=== PATIENT | male | born 1945 | race Caucasian/White ===

== ENCOUNTER 2022-03-06 09:08 | Outpatient (CLI) | payer MEDICARE | END 2022-03-06 09:09 | disposition home or self-care (01) | LOC: BICRAD 09:08 | PROVIDERS: ATTEND Psychiatry & Neurology Neurology | DX: R26.81 Unsteadiness on feet (principal); M47.816 Spondylosis without myelopathy or radiculopathy, lumbar region | CPT/HCPCS: 72100 ==

== ENCOUNTER 2022-05-16 07:51 | Outpatient (CLI) | payer MEDICARE | END 2022-05-16 07:52 | disposition home or self-care (01) | LOC: TBSIIMAG 07:51 | PROVIDERS: ATTEND Psychiatry & Neurology Neurology | DX: M51.9 Unspecified thoracic, thoracolumbar and lumbosacral intervertebral disc disorder (principal); M47.816 Spondylosis without myelopathy or radiculopathy, lumbar region | CPT/HCPCS: 72148 ==

== ENCOUNTER 2022-12-07 00:36 | Observation (INO) | payer MEDICARE ==
[2022-12-07 01:34] LABS: #Basophils 0.1 thou/uL (0.0-0.2); #Eosinphils 0.3 thou/uL (0.0-0.7); #Lymphocytes 1.3 thou/uL (1.20-3.40); #Monocytes 0.5 thou/uL (0.11-0.59); #Neutrophils 5.1 thou/uL (1.40-6.50); %Basophils 0.8 % (0.0-1.0); %Eosinophils 3.5 % (0.0-10.0); %Lymphocytes 17.8 % (21.0-51.0); %Monocytes 7.3 % (0.0-10.0); %Neutrophils 70.6 % (42.0-75.0); Hemoglobin 13.3 g/dL (14.0-18.0); Mean Corpuscular HGB CONC 34.6 g/dL (32.0-36.0); Mean Corpuscular Hemoglobin 33.2 pg (27.0-31.0); Mean Corpuscular Volume 96.1 fl (78.0-98.0); Mean Platelet Volume 8.7 fL (7.4-10.4); Platelet Count 146 10x3/uL (130-400); RBC Distribution Width 12.6 % (11.5-14.5); Red Blood Cell (RBC) Count 4.01 mill/uL (4.70-6.10); White Blood Cell (WBC) Count 7.2 10x3/uL (4.8-10.8)
[2022-12-07 01:50] LABS: INR-International Normal Ratio 2.3
[2022-12-07 01:54] LABS: ALT (SGPT) 25 U/L (8-55); AST (SGOT) 25 U/L (5-34); Albumin 3.9 g/dL (3.4-4.8); Alkaline Phosphatase 116 U/L (40-110); Anion Gap 13 mmol/L (10-20); BUN (Urea Nitrogen) 27 mg/dL (8.4-25.7); Bilirubin, Total 0.9 mg/dL (0.2-1.2); Calc. Creatinine Clearance 0 mL/min (70-130); Calcium 9.4 mg/dL (7.8-10.44); Carbon Dioxide 24 mmol/L (23-31); Chloride 105 mmol/L (98-107); Estimated GFR 69; Globulin 2.9 g/dL (2.4-3.5); Glucose 151 mg/dL (83-110); Potassium 3.8 mmol/L (3.5-5.1); Protein, Total 6.8 g/dL (5.8-8.1); Sodium 138 mmol/L (136-145)
[2022-12-07 02:19] LABS: CKMB 3.2 ng/mL (0-6.6)
[2022-12-07] MEDS ORDERED: HumaLOG 300 UNITS/3 ML VIAL SC PRN ×2 (03:26)
[2022-12-07] MEDS ORDERED: Dextrose 5% in Water 1,000 ML IV PRN (03:26)
[2022-12-07] MEDS ORDERED: Dextrose 50% Abboject 50 ML SYRINGE SLOW IVP PRN (03:26)
[2022-12-07 04:19] VITALS: BP 142/77; TEMP 98.1; BMI 28.5
[2022-12-07 05:12] LABS: Hemoglobin A1c 6.2 % (4.0-6.0)
[2022-12-07 05:29] LABS: Troponin I 0.081 ng/mL (< 0.028)
[2022-12-07] MEDS ORDERED: Levothyroxine Sodium 25 MCG TAB PO SCH (06:00)
[2022-12-07] MEDS ORDERED: Levothyroxine Sodium 112 MCG TAB PO SCH (06:00)
[2022-12-07 06:12] LABS: SARS-CoV-2 NAA Rapid Test Not Detected (NotDetected)
[2022-12-07] MEDS ORDERED: metFORMIN XR 500 MG TAB PO SCH (08:00)
[2022-12-07 08:42] LABS: Troponin I 0.076 ng/mL (< 0.028)
[2022-12-07] MEDS ORDERED: Triamterene/Hydrochlorothiazide 37.5 mg/25 mg Tablet PO SCH (09:00)
[2022-12-07] MEDS ORDERED: Dutasteride 0.5 MG CAP PO SCH (09:00)
[2022-12-07] MEDS ORDERED: Losartan 25 MG TAB PO SCH (09:00)
[2022-12-07] MEDS ORDERED: Tamsulosin HCl 0.4 MG CAP PO SCH (09:00)
[2022-12-07] MEDS ORDERED: Regadenoson 0.4 MG/5 ML SYRINGE ONE (11:18)
[2022-12-07] MEDS ORDERED: Atorvastatin Calcium 40 MG TAB PO SCH (21:00)
== END 2022-12-07 17:33 | disposition home or self-care (01) ==
LOC: ERS 00:36 → ERHOLD 02:35
PROVIDERS: ADMIT Family Medicine; ATTEND Family Medicine
DX: I16.0 Hypertensive urgency (principal); I65.21 Occlusion and stenosis of right carotid artery; E03.9 Hypothyroidism, unspecified; E78.5 Hyperlipidemia, unspecified; N40.0 Benign prostatic hyperplasia without lower urinary tract symptoms; E11.65 Type 2 diabetes mellitus with hyperglycemia; D64.9 Anemia, unspecified; R94.31 Abnormal electrocardiogram [ECG] [EKG]; I45.2 Bifascicular block; R07.89 Other chest pain; Z87.891 Personal history of nicotine dependence; Z79.01 Long term (current) use of anticoagulants; Z79.84 Long term (current) use of oral hypoglycemic drugs; Z79.85 Long-term (current) use of injectable non-insulin antidiabetic drugs; Z79.899 Other long term (current) drug therapy; Z79.890 Hormone replacement therapy; Z95.2 Presence of prosthetic heart valve; Z20.822 Contact with and (suspected) exposure to COVID-19
CPT/HCPCS: 0240U; 71045; 78452; 80061; 82553; 83036; 83880; 84484 ×2; 85610; 93005; 93017; 99285; A9500; 36415; 80053; 84443; 85025; G0378; J2785

== ENCOUNTER 2023-01-31 08:44 | Outpatient (CLI) | payer MEDICARE ==
[2023-01-31] MEDS ORDERED: Iopamidol 370 76% 100 ML VIAL ONE (11:07)
== END 2023-01-31 08:45 | disposition home or self-care (01) ==
LOC: BICCT 08:44
PROVIDERS: ATTEND Family Medicine
DX: R05.3 Chronic cough (principal); J98.4 Other disorders of lung
CPT/HCPCS: 71260; 82565; Q9967

== ENCOUNTER 2023-09-13 12:59 | Emergency (ER) | payer MEDICARE | END 2023-09-13 15:04 | disposition home or self-care (01) | LOC: ERS 12:59 | DX: S50.11XA Contusion of right forearm, initial encounter (principal); E11.9 Type 2 diabetes mellitus without complications; I10 Essential (primary) hypertension; Z95.4 Presence of other heart-valve replacement; Z79.01 Long term (current) use of anticoagulants; Z79.899 Other long term (current) drug therapy; Z79.84 Long term (current) use of oral hypoglycemic drugs; W19.XXXA Unspecified fall, initial encounter ==

== ENCOUNTER 2023-09-25 09:42 | Outpatient (CLI) | payer MEDICARE | END 2023-09-25 09:43 | disposition home or self-care (01) | LOC: BICRAD 09:42 | PROVIDERS: ATTEND Nurse Practitioner Primary Care | DX: M25.531 Pain in right wrist (principal); M19.031 Primary osteoarthritis, right wrist ==

== ENCOUNTER 2024-09-25 21:52 | Emergency (ER) | payer MEDICARE ==
[2024-09-25 22:44] LABS: #Basophils Less than 0.03 10x3/uL (0.0-0.2); %Basophils 0.3 % (0.0-1.0); %Eosinophils 3.6 % (0.0-10.0); %Lymphocytes 15.2 % (21.0-51.0); %Monocytes 8.6 % (0.0-10.0); %Neutrophils 72.1 % (42.0-75.0); Hemoglobin 12.5 g/dL (14.0-18.0); Mean Corpuscular HGB CONC 33.8 g/dL (32.0-36.0); Mean Corpuscular Hemoglobin 31.8 pg (27.0-31.0); Mean Corpuscular Volume 94.1 fL (78.0-98.0); Mean Platelet Volume 10.7 fL (7.4-10.4); Platelet Count 132 10x3/uL (130-400); RBC Distribution Width 13.9 % (11.5-14.5); Red Blood Cell (RBC) Count 3.93 mill/uL (4.70-6.10)
[2024-09-25 23:01] LABS: INR-International Normal Ratio 4.2; Prothrombin Time 40.6 sec (12.0-14.7)
[2024-09-25 23:04] LABS: Troponin I 0.081 ng/mL (< 0.028)
[2024-09-25 23:06] LABS: ALT (SGPT) 37 U/L (8-55); AST (SGOT) 27 U/L (5-34); Albumin 3.6 g/dL (3.4-4.8); Alkaline Phosphatase 86 U/L (40-110); Anion Gap 12 mmol/L (10-20); BUN (Urea Nitrogen) 33 mg/dL (8.4-25.7); Calc. Creatinine Clearance 0 mL/min (70-130); Calcium 8.3 mg/dL (7.8-10.44); Carbon Dioxide 23 mmol/L (23-31); Chloride 109 mmol/L (98-107); Estimated GFR 73; Globulin 2.5 g/dL (2.4-3.5); Glucose 154 mg/dL (83-110); Lipase 24 U/L (8-78); Magnesium 2.1 mg/dL (1.6-2.6); Potassium 3.9 mmol/L (3.5-5.1); Protein, Total 6.1 g/dL (5.8-8.1); Sodium 140 mmol/L (136-145)
[2024-09-25] MEDS ORDERED: Ibuprofen 800 MG TAB ONE (23:16)
[2024-09-25] MEDS ORDERED: Acetaminophen 325 MG TAB ONE (23:16)
== END 2024-09-25 23:50 | disposition left against medical advice (07) ==
LOC: ERS 21:52
DX: R07.89 Other chest pain (principal); I10 Essential (primary) hypertension; E11.9 Type 2 diabetes mellitus without complications
CPT/HCPCS: 36415; 71045; 80053; 83690; 83735; 83880; 84484; 85025; 85610; 93005

== ENCOUNTER 2024-11-14 18:11 | Inpatient (IN) | payer MEDICARE ==
[2024-11-14 19:53] LABS: #Basophils 0.03 10x3/uL (0.0-0.2); #Eosinophils Less than 0.03 10x3/uL (0.0-0.7); %Basophils 0.2 % (0.0-1.0); %Lymphocytes 3.4 % (21.0-51.0); %Monocytes 5.3 % (0.0-10.0); %Neutrophils 90.7 % (42.0-75.0); Hematocrit 35.7 % (42.0-52.0); Hemoglobin 12.3 g/dL (14.0-18.0); Mean Corpuscular HGB CONC 34.5 g/dL (32.0-36.0); Mean Corpuscular Hemoglobin 31.9 pg (27.0-31.0); Mean Corpuscular Volume 92.7 fL (78.0-98.0); Mean Platelet Volume 11.2 fL (7.4-10.4); Platelet Count 129 10x3/uL (130-400); RBC Distribution Width 14.4 % (11.5-14.5); Red Blood Cell (RBC) Count 3.85 mill/uL (4.70-6.10)
[2024-11-14 20:06] LABS: ALT (SGPT) 36 U/L (Less than 45); AST (SGOT) 36 U/L (11-34); Albumin 3.7 g/dL (3.1-4.5); Alkaline Phosphatase 67 U/L (40-110); Anion Gap 12 mmol/L (10-20); BUN (Urea Nitrogen) 34 mg/dL (8.4-25.7); Bilirubin, Total 2.6 mg/dL (0.3-1.2); Calc. Creatinine Clearance 0 mL/min (70-130); Calcium 8.7 mg/dL (7.8-10.44); Carbon Dioxide 21 mmol/L (23-31); Chloride 102 mmol/L (98-107); Estimated GFR 51; Globulin 3.5 g/dL (2.4-3.5); Glucose 129 mg/dL (83-110); Potassium 4.1 mmol/L (3.5-5.1); Protein, Total 7.2 g/dL (5.8-8.1); Sodium 131 mmol/L (136-145)
[2024-11-14 20:30] LABS: Bacteria/HPF None Seen HPF (None Seen); Bilirubin Negative (Negative); Blood, Urine 2+ (Negative); CAUTI Indications for Culture Pelvic or flank pain; Clarity Clear (Clear); Glucose, Urine (Dipstick) Normal (Negative); Ketone, Urine Negative (Negative); Leukocyte 250 Leu/uL (Negative); Nitrite Negative (Negative); Protein, Urine (Dipstick) 50 mg/dL (Neg-Trace); Specific Gravity, Urine 1.021 (1.002-1.036); Squamous Epithelial None Seen HPF (0-3); Urobilinogen Normal mg/dL (Less than 2); WBC/HPF 21-50 HPF (0-3); pH, Urine 5.5 (5.0-9.0)
[2024-11-14 20:32] LABS: Urine Culture Reflex Yes Yes
[2024-11-14 23:55] LABS: Lipase 11 U/L (8-78); Magnesium 1.9 mg/dL (1.6-2.6)
[2024-11-14 23:59] LABS: Troponin I 0.113 ng/mL (< 0.028)
[2024-11-15] MEDS ORDERED: Sodium Chloride 0.9% 100 ML ONE (01:12)
[2024-11-15] MEDS ORDERED: cefTRIAXone (ROCEPHIN) 2 GM VIAL ONE (01:12)
[2024-11-15 01:50] LABS: INR-International Normal Ratio 2.9; PTT 59.6 sec (22.9-36.1); Prothrombin Time 30.2 sec (12.0-14.7)
[2024-11-15] MEDS ORDERED: Ondansetron PF 4 MG/2 ML Vial IVP PRN (03:36)
[2024-11-15] MEDS ORDERED: Dextrose 5% in Water 1,000 ML IV PRN (03:38)
[2024-11-15] MEDS ORDERED: Insulin Lispro 100 UNIT/ML 10 ML VIAL SC PRN ×2 (03:38)
[2024-11-15] MEDS ORDERED: Glucagon 1 MG/ML KIT IM PRN (03:38)
[2024-11-15] MEDS ORDERED: Dextrose 50% Abboject 50 ML SYRINGE SLOW IVP PRN (03:38)
[2024-11-15 03:58] LABS: Troponin I 0.099 ng/mL (< 0.028)
[2024-11-15 04:57] VITALS: BMI 29.9
[2024-11-15] MEDS: Sodium Chloride 0.9% 1,000 ML IV SCH ×2 (05:22→18:22)
[2024-11-15] MEDS: Finasteride 5 MG TAB PO SCH (08:56)
[2024-11-15] MEDS: Ezetimibe 10 MG TAB PO SCH (08:56)
[2024-11-15] MEDS: Dutasteride 0.5 MG CAP PO SCH (08:56)
[2024-11-15] MEDS: Tamsulosin HCl 0.4 MG CAP PO SCH (08:56)
[2024-11-15] MEDS: Liothyronine Sodium 5 MCG TAB PO SCH (08:56)
[2024-11-15] MEDS: Losartan 25 MG TAB PO SCH (08:57)
[2024-11-15] MEDS: Amlodipine 10 MG TAB PO SCH (08:57)
[2024-11-15] MEDS ORDERED: IRBESARTAN 75 MG PO SCH (09:00)
[2024-11-15 11:34] LABS: PTT 59.8 sec (22.9-36.1); Prothrombin Time 31.4 sec (12.0-14.7)
[2024-11-15 11:37] LABS: #Basophils Less than 0.03 10x3/uL (0.0-0.2); %Basophils 0.2 % (0.0-1.0); %Eosinophils 0.5 % (0.0-10.0); %Lymphocytes 4.3 % (21.0-51.0); %Neutrophils 89.5 % (42.0-75.0); Hematocrit 32.3 % (42.0-52.0); Mean Corpuscular HGB CONC 34.1 g/dL (32.0-36.0); Mean Corpuscular Hemoglobin 31.8 pg (27.0-31.0); Mean Corpuscular Volume 93.4 fL (78.0-98.0); Mean Platelet Volume 11.2 fL (7.4-10.4); Platelet Count 114 10x3/uL (130-400); RBC Distribution Width 14.6 % (11.5-14.5); Red Blood Cell (RBC) Count 3.46 mill/uL (4.70-6.10)
[2024-11-15 11:39] LABS: ALT (SGPT) 27 U/L (Less than 45); AST (SGOT) 27 U/L (11-34); Albumin 3.2 g/dL (3.1-4.5); Alkaline Phosphatase 55 U/L (40-110); Anion Gap 11 mmol/L (10-20); BUN (Urea Nitrogen) 31 mg/dL (8.4-25.7); Bilirubin, Direct 0.3 mg/dL (0.1-0.3); Calc. Creatinine Clearance 64 mL/min (70-130); Calcium 8.3 mg/dL (7.8-10.44); Carbon Dioxide 21 mmol/L (23-31); Chloride 103 mmol/L (98-107); Estimated GFR 60; Glucose 157 mg/dL (83-110); Potassium 3.8 mmol/L (3.5-5.1); Protein, Total 6.2 g/dL (5.8-8.1); Sodium 131 mmol/L (136-145)
[2024-11-15] MEDS: Atorvastatin Calcium 40 MG TAB PO SCH (20:09)
[2024-11-15] MEDS: Aspirin 81 mg Enteric Coated Tablet PO SCH (20:38)
[2024-11-16] MEDS: cefTRIAXone\\ROCEPHIN 1 GM in Sodium Chloride 0.9% 100 ML IVPB SCH (00:04)
[2024-11-16 05:21] LABS: #Basophils Less than 0.03 10x3/uL (0.0-0.2); %Basophils 0.3 % (0.0-1.0); %Eosinophils 1.8 % (0.0-10.0); %Lymphocytes 11.7 % (21.0-51.0); %Monocytes 8.2 % (0.0-10.0); %Neutrophils 77.6 % (42.0-75.0); Hemoglobin 10.2 g/dL (14.0-18.0); Mean Corpuscular Hemoglobin 31.9 pg (27.0-31.0); Mean Corpuscular Volume 93.8 fL (78.0-98.0); Platelet Count 96 10x3/uL (130-400); RBC Distribution Width 14.4 % (11.5-14.5)
[2024-11-16 05:31] LABS: Prothrombin Time 31.6 sec (12.0-14.7)
[2024-11-16 05:32] LABS: Anion Gap 10 mmol/L (10-20); BUN (Urea Nitrogen) 27 mg/dL (8.4-25.7); Calc. Creatinine Clearance 66 mL/min (70-130); Calcium 7.8 mg/dL (7.8-10.44); Carbon Dioxide 23 mmol/L (23-31); Chloride 109 mmol/L (98-107); Estimated GFR 63; Glucose 104 mg/dL (83-110); PTT 66.6 sec (22.9-36.1); Potassium 4.2 mmol/L (3.5-5.1); Sodium 138 mmol/L (136-145)
[2024-11-16] MEDS: Levothyroxine Sodium 112 MCG TAB PO SCH (05:50)
[2024-11-16] MEDS: Acetaminophen 325 MG TAB PO PRN (05:50)
[2024-11-16] MEDS: Levothyroxine Sodium 25 MCG TAB PO SCH (05:51)
[2024-11-16 06:20] LABS: Thyroid Stimulating Hormone 0.2459 uIU/mL (0.35-4.94)
[2024-11-16 06:21] LABS: Free T4 (Free Thyroxine) 1.02 ng/dL (0.70-1.48)
[2024-11-16] MEDS: Aspirin 81 mg Enteric Coated Tablet PO SCH (08:51)
[2024-11-16] MEDS ORDERED: Warfarin Sodium 10 MG TAB PO SCH ×2 (17:00)
[2024-11-17] MEDS: Cosyntropin 250 MCG VIAL SLOW IVP SCH (05:31)
[2024-11-17 05:52] LABS: Sodium 138 mmol/L (136-145)
[2024-11-17 05:53] LABS: Calcium 7.9 mg/dL (7.8-10.44); Chloride 110 mmol/L (98-107)
[2024-11-17 05:54] LABS: Glucose 101 mg/dL (83-110)
[2024-11-17 05:55] LABS: Anion Gap 10 mmol/L (10-20); Carbon Dioxide 22 mmol/L (23-31)
[2024-11-17 05:57] LABS: Calc. Creatinine Clearance 82 mL/min (70-130); Estimated GFR 80
[2024-11-17 05:58] LABS: BUN (Urea Nitrogen) 21 mg/dL (8.4-25.7)
[2024-11-17 06:00] LABS: #Basophils Less than 0.03 10x3/uL (0.0-0.2); %Basophils 0.3 % (0.0-1.0); %Eosinophils 4.5 % (0.0-10.0); %Lymphocytes 14.5 % (21.0-51.0); %Monocytes 8.8 % (0.0-10.0); %Neutrophils 71.4 % (42.0-75.0); Hematocrit 30.2 % (42.0-52.0); Hemoglobin 10.2 g/dL (14.0-18.0); Mean Corpuscular HGB CONC 33.8 g/dL (32.0-36.0); Mean Corpuscular Hemoglobin 31.5 pg (27.0-31.0); Mean Corpuscular Volume 93.2 fL (78.0-98.0); Platelet Count 113 10x3/uL (130-400); RBC Distribution Width 14.1 % (11.5-14.5); Red Blood Cell (RBC) Count 3.24 mill/uL (4.70-6.10)
[2024-11-17 06:02] LABS: INR-International Normal Ratio 2.5; Prothrombin Time 27.5 sec (12.0-14.7)
[2024-11-17 06:03] LABS: PTT 56.6 sec (22.9-36.1)
[2024-11-17 08:19] VITALS: TEMP 98.4
[2024-11-17 10:51] VITALS: BP 118/61
[2024-11-17] MEDS ORDERED: Warfarin Sodium 10 MG TAB PO SCH (17:00)
[2024-11-18] MEDS ORDERED: Warfarin Sodium 7.5 MG TAB PO SCH (17:00)
== END 2024-11-17 11:24 | disposition home or self-care (01) | DRG 690 ==
LOC: ERS 18:11 → ERHOLD 11-15 02:09 → T4-A 11-15 04:39 → OBSVTOIN 11-16 17:37
PROVIDERS: ADMIT Internal Medicine; ATTEND Internal Medicine
DX: N39.0 Urinary tract infection, site not specified (principal); N17.9 Acute kidney failure, unspecified; I5A Non-ischemic myocardial injury (non-traumatic); Z95.2 Presence of prosthetic heart valve; Z79.01 Long term (current) use of anticoagulants; I10 Essential (primary) hypertension; E03.9 Hypothyroidism, unspecified; Z79.82 Long term (current) use of aspirin; Z79.899 Other long term (current) drug therapy; E78.5 Hyperlipidemia, unspecified; E11.9 Type 2 diabetes mellitus without complications; N40.0 Benign prostatic hyperplasia without lower urinary tract symptoms; Z90.49 Acquired absence of other specified parts of digestive tract; Z98.890 Other specified postprocedural states; Z87.891 Personal history of nicotine dependence
CPT/HCPCS: 36415; 36416; 70450; 71045; 74176; 80048; 80053; 80076; 80400; 81001; 83605; 83690; 83735; 84439; 84443; 84484; 85025; 85610; 85730; 87040; 87086; 87428; 93005; 96361; 96365; 96376; G0378; J0696; J0834; J7030

== ENCOUNTER 2025-07-01 10:30 | Outpatient (CLI) | payer MEDICARE | END 2025-07-01 10:31 | disposition home or self-care (01) | LOC: RAD 10:30 | PROVIDERS: ATTEND Otolaryngology | DX: R13.14 Dysphagia, pharyngoesophageal phase (principal); C67.9 Malignant neoplasm of bladder, unspecified; M25.78 Osteophyte, vertebrae | CPT/HCPCS: 74230 ==

== ENCOUNTER 2025-08-12 12:25 | Inpatient (IN) | payer MEDICARE ==
[2025-08-12 13:26] LABS: #Basophils Less than 0.03 10x3/uL (0.0-0.2); #Eosinophils 0.09 10x3/uL (0.0-0.7); #Monocytes 0.32 10x3/uL (0.11-0.59); #Neutrophils 4.34 10x3/uL (1.40-6.50); %Basophils 0.4 % (0.0-1.0); %Eosinophils 1.7 % (0.0-10.0); %Lymphocytes 11.6 % (21.0-51.0); %Monocytes 5.9 % (0.0-10.0); %Neutrophils 80.2 % (42.0-75.0); Hematocrit 40.1 % (42.0-52.0); Hemoglobin 13.2 g/dL (14.0-18.0); Mean Corpuscular Hemoglobin 30.9 pg (27.0-31.0); Mean Corpuscular Volume 93.9 fL (78.0-98.0); Platelet Count 135 10x3/uL (130-400); Red Blood Cell (RBC) Count 4.27 mill/uL (4.70-6.10); White Blood Cell (WBC) Count 5.41 10x3/uL (4.8-10.8)
[2025-08-12 13:39] LABS: ALT (SGPT) 33 U/L (Less than 45); AST (SGOT) 36 U/L (11-34); Albumin 4.0 g/dL (3.1-4.5); Alkaline Phosphatase 81 U/L (40-110); Anion Gap 14 mmol/L (10-20); BUN (Urea Nitrogen) 21 mg/dL (8.4-25.7); Bilirubin, Total 1.5 mg/dL (0.3-1.2); Calc. Creatinine Clearance 0 mL/min (70-130); Calcium 9.0 mg/dL (7.8-10.44); Carbon Dioxide 23 mmol/L (23-31); Chloride 105 mmol/L (98-107); Globulin 2.9 g/dL (2.4-3.5); Glucose 195 mg/dL (83-110); Potassium 4.4 mmol/L (3.5-5.1); Sodium 138 mmol/L (136-145)
[2025-08-12 13:41] LABS: Bacteria/HPF None Seen HPF (None Seen); CAUTI Indications for Culture Dysuria,urgency,freq; Glucose, Urine (Dipstick) 200 mg/dL (Negative); Leukocyte 75 Leu/uL (Negative); Protein, Urine (Dipstick) Negative (Neg-Trace); RBC/HPF 0-3 HPF (0-3); Specific Gravity, Urine 1.010 (1.002-1.036)
[2025-08-12 13:48] LABS: Urine Culture Reflex No No
[2025-08-12 14:09] LABS: INR-International Normal Ratio 2.2; Prothrombin Time 24.5 sec (12.0-14.7)
[2025-08-12 14:10] LABS: PTT 39.8 sec (22.9-36.1)
[2025-08-12] MEDS ORDERED: Senokot S 8.6-50 MG TAB PO PRN (15:23)
[2025-08-12] MEDS ORDERED: Melatonin 3 MG TAB PO PRN (15:23)
[2025-08-12] MEDS ORDERED: Glucagon 1 MG/ML KIT IM PRN (15:23)
[2025-08-12] MEDS ORDERED: Dextrose 50% Abboject 50 ML SYRINGE SLOW IVP PRN (15:23)
[2025-08-12 17:36] VITALS: BMI 29.0
[2025-08-12] MEDS: Acetaminophen 325 MG TAB PO PRN (22:58)
[2025-08-13 05:25] LABS: #Basophils 0.04 10x3/uL (0.0-0.2); #Eosinophils 0.29 10x3/uL (0.0-0.7); #Monocytes 0.66 10x3/uL (0.11-0.59); #Neutrophils 5.16 10x3/uL (1.40-6.50); %Basophils 0.5 % (0.0-1.0); %Eosinophils 4.0 % (0.0-10.0); %Lymphocytes 15.5 % (21.0-51.0); %Monocytes 9.0 % (0.0-10.0); %Neutrophils 70.7 % (42.0-75.0); Hematocrit 38.2 % (42.0-52.0); Hemoglobin 12.4 g/dL (14.0-18.0); Mean Corpuscular Hemoglobin 30.6 pg (27.0-31.0); Mean Corpuscular Volume 94.3 fL (78.0-98.0); Platelet Count 134 10x3/uL (130-400); Red Blood Cell (RBC) Count 4.05 mill/uL (4.70-6.10); White Blood Cell (WBC) Count 7.30 10x3/uL (4.8-10.8)
[2025-08-13 05:50] LABS: ALT (SGPT) 27 U/L (Less than 45); AST (SGOT) 28 U/L (11-34); Albumin 3.7 g/dL (3.1-4.5); Alkaline Phosphatase 63 U/L (40-110); Anion Gap 8 mmol/L (10-20); BUN (Urea Nitrogen) 17 mg/dL (8.4-25.7); Bilirubin, Total 1.8 mg/dL (0.3-1.2); Calc. Creatinine Clearance 62 mL/min (70-130); Calcium 8.8 mg/dL (7.8-10.44); Carbon Dioxide 27 mmol/L (23-31); Chloride 106 mmol/L (98-107); Globulin 2.5 g/dL (2.4-3.5); Glucose 93 mg/dL (83-110); Potassium 4.1 mmol/L (3.5-5.1); Sodium 137 mmol/L (136-145)
[2025-08-13] MEDS: Losartan 25 MG TAB PO SCH (10:14)
[2025-08-13] MEDS: Aspirin 81 mg Enteric Coated Tablet PO SCH (20:11)
[2025-08-14 05:27] LABS: #Basophils 0.04 10x3/uL (0.0-0.2); #Eosinophils 0.31 10x3/uL (0.0-0.7); #Monocytes 0.65 10x3/uL (0.11-0.59); #Neutrophils 4.39 10x3/uL (1.40-6.50); %Basophils 0.6 % (0.0-1.0); %Eosinophils 4.6 % (0.0-10.0); %Lymphocytes 19.7 % (21.0-51.0); %Monocytes 9.6 % (0.0-10.0); %Neutrophils 65.2 % (42.0-75.0); Hematocrit 39.8 % (42.0-52.0); Hemoglobin 13.2 g/dL (14.0-18.0); Mean Corpuscular Hemoglobin 31.0 pg (27.0-31.0); Mean Corpuscular Volume 93.4 fL (78.0-98.0); Platelet Count 142 10x3/uL (130-400); Red Blood Cell (RBC) Count 4.26 mill/uL (4.70-6.10); White Blood Cell (WBC) Count 6.74 10x3/uL (4.8-10.8)
[2025-08-14 05:40] LABS: INR-International Normal Ratio 2.0; Prothrombin Time 22.5 sec (12.0-14.7)
[2025-08-14 05:44] LABS: ALT (SGPT) 31 U/L (Less than 45); AST (SGOT) 32 U/L (11-34); Albumin 3.6 g/dL (3.1-4.5); Alkaline Phosphatase 73 U/L (40-110); Anion Gap 12 mmol/L (10-20); BUN (Urea Nitrogen) 18 mg/dL (8.4-25.7); Bilirubin, Total 1.6 mg/dL (0.3-1.2); Calc. Creatinine Clearance 65 mL/min (70-130); Calcium 8.7 mg/dL (7.8-10.44); Carbon Dioxide 25 mmol/L (23-31); Chloride 107 mmol/L (98-107); Globulin 2.7 g/dL (2.4-3.5); Glucose 101 mg/dL (83-110); Potassium 4.1 mmol/L (3.5-5.1); Sodium 140 mmol/L (136-145)
[2025-08-14] MEDS: Ezetimibe 10 MG TAB PO SCH (08:05)
[2025-08-14] MEDS: metFORMIN XR 500 MG ER.TAB PO SCH (08:05)
[2025-08-14] MEDS: Finasteride 5 MG TAB PO SCH (08:05)
[2025-08-15 05:53] LABS: #Basophils 0.03 10x3/uL (0.0-0.2); #Eosinophils 0.38 10x3/uL (0.0-0.7); #Monocytes 0.61 10x3/uL (0.11-0.59); #Neutrophils 3.85 10x3/uL (1.40-6.50); %Basophils 0.5 % (0.0-1.0); %Eosinophils 6.2 % (0.0-10.0); %Lymphocytes 20.6 % (21.0-51.0); %Monocytes 9.9 % (0.0-10.0); %Neutrophils 62.5 % (42.0-75.0); Hematocrit 39.6 % (42.0-52.0); Hemoglobin 13.0 g/dL (14.0-18.0); Mean Corpuscular Hemoglobin 31.2 pg (27.0-31.0); Mean Corpuscular Volume 95.0 fL (78.0-98.0); Platelet Count 147 10x3/uL (130-400); Red Blood Cell (RBC) Count 4.17 mill/uL (4.70-6.10); White Blood Cell (WBC) Count 6.16 10x3/uL (4.8-10.8)
[2025-08-15 06:12] LABS: ALT (SGPT) 38 U/L (Less than 45); AST (SGOT) 36 U/L (11-34); Albumin 3.6 g/dL (3.1-4.5); Alkaline Phosphatase 68 U/L (40-110); Anion Gap 11 mmol/L (10-20); BUN (Urea Nitrogen) 23 mg/dL (8.4-25.7); Bilirubin, Total 1.6 mg/dL (0.3-1.2); Calc. Creatinine Clearance 62 mL/min (70-130); Calcium 8.9 mg/dL (7.8-10.44); Carbon Dioxide 26 mmol/L (23-31); Chloride 107 mmol/L (98-107); Globulin 2.7 g/dL (2.4-3.5); Glucose 93 mg/dL (83-110); Potassium 4.0 mmol/L (3.5-5.1); Sodium 140 mmol/L (136-145)
[2025-08-15 06:26] LABS: INR-International Normal Ratio 2.2; Prothrombin Time 24.2 sec (12.0-14.7)
[2025-08-15 17:25] VITALS: TEMP 98.1
[2025-08-15 17:45] VITALS: BP 128/66
[2025-08-15] MEDS ORDERED: Transdermal Patch Removal TOP SCH (21:00)
[2025-08-16] MEDS ORDERED: Losartan 25 MG TAB PO SCH (09:00)
[2025-08-16] MEDS ORDERED: Lisinopril 20 MG TAB PO SCH (09:00)
== END 2025-08-15 18:29 | disposition home or self-care (01) | DRG 312 ==
LOC: ERS 12:25 → 2NO 14:41 → OBSVTOIN 08-14 10:06
PROVIDERS: ADMIT Student in an Organized Health Care Education/Training Program; ATTEND Student in an Organized Health Care Education/Training Program
DX: R55 Syncope and collapse (principal); E11.9 Type 2 diabetes mellitus without complications; I10 Essential (primary) hypertension; I44.0 Atrioventricular block, first degree; I65.23 Occlusion and stenosis of bilateral carotid arteries; E03.9 Hypothyroidism, unspecified; N40.0 Benign prostatic hyperplasia without lower urinary tract symptoms; I44.1 Atrioventricular block, second degree; I44.7 Left bundle-branch block, unspecified; I44.69 Other fascicular block; Z90.49 Acquired absence of other specified parts of digestive tract; Z79.891 Long term (current) use of opiate analgesic; Z79.899 Other long term (current) drug therapy; Z85.51 Personal history of malignant neoplasm of bladder; Z98.890 Other specified postprocedural states; Z79.01 Long term (current) use of anticoagulants
CPT/HCPCS: 36415; 36416; 70450; 70486; 71045; 72125; 80053; 81001; 83880; 84484; 85025; 85610; 85730; 93005; 93010; 93306; 93880; 94760; G0378

== ENCOUNTER 2025-08-20 18:01 | Emergency (ER) | payer MEDICARE ==
[2025-08-20 20:29] LABS: Bacteria/HPF None Seen HPF (None Seen); CAUTI Indications for Culture Pelvic or flank pain; Glucose, Urine (Dipstick) Normal (Negative); Leukocyte 25 Leu/uL (Negative); Protein, Urine (Dipstick) Negative (Neg-Trace); RBC/HPF 0-3 HPF (0-3); Specific Gravity, Urine 1.013 (1.002-1.036)
[2025-08-20 20:32] LABS: Urine Culture Reflex No No
[2025-08-20 20:33] LABS: #Basophils 0.04 10x3/uL (0.0-0.2); #Eosinophils 0.25 10x3/uL (0.0-0.7); #Monocytes 0.49 10x3/uL (0.11-0.59); #Neutrophils 3.73 10x3/uL (1.40-6.50); %Basophils 0.7 % (0.0-1.0); %Eosinophils 4.6 % (0.0-10.0); %Lymphocytes 17.6 % (21.0-51.0); %Monocytes 9.0 % (0.0-10.0); %Neutrophils 68.1 % (42.0-75.0); Hematocrit 41.7 % (42.0-52.0); Hemoglobin 13.9 g/dL (14.0-18.0); Mean Corpuscular Hemoglobin 31.4 pg (27.0-31.0); Mean Corpuscular Volume 94.1 fL (78.0-98.0); Platelet Count 135 10x3/uL (130-400); Red Blood Cell (RBC) Count 4.43 mill/uL (4.70-6.10); White Blood Cell (WBC) Count 5.47 10x3/uL (4.8-10.8)
[2025-08-20 20:35] LABS: INR-International Normal Ratio 2.3; Prothrombin Time 25.2 sec (12.0-14.7)
[2025-08-20 20:36] LABS: PTT 38.9 sec (22.9-36.1)
[2025-08-20 20:42] LABS: ALT (SGPT) 35 U/L (Less than 45); AST (SGOT) 36 U/L (11-34); Albumin 4.2 g/dL (3.1-4.5); Alkaline Phosphatase 97 U/L (40-110); Anion Gap 18 mmol/L (10-20); BUN (Urea Nitrogen) 25 mg/dL (8.4-25.7); Bilirubin, Total 1.0 mg/dL (0.3-1.2); Calc. Creatinine Clearance 0 mL/min (70-130); Calcium 9.3 mg/dL (7.8-10.44); Carbon Dioxide 23 mmol/L (23-31); Chloride 106 mmol/L (98-107); Globulin 3.0 g/dL (2.4-3.5); Glucose 128 mg/dL (83-110); Potassium 4.1 mmol/L (3.5-5.1); Sodium 143 mmol/L (136-145)
== END 2025-08-20 22:41 | disposition home or self-care (01) ==
LOC: ERS 18:01
DX: R55 Syncope and collapse (principal); E11.9 Type 2 diabetes mellitus without complications; I10 Essential (primary) hypertension; Z79.84 Long term (current) use of oral hypoglycemic drugs; Z79.01 Long term (current) use of anticoagulants; Z79.899 Other long term (current) drug therapy
CPT/HCPCS: 70450; 71045; 80053; 81001; 84484; 85025; 85610; 85730; 93005; 94760

== ENCOUNTER 2025-08-29 08:19 | Outpatient (CLI) | payer MEDICARE ==
[2025-08-29 10:08] LABS: INR-International Normal Ratio 2.7; PTT 42.5 sec (22.9-36.1); Prothrombin Time 28.5 sec (12.0-14.7)
[2025-08-29 10:11] LABS: Anion Gap 12 mmol/L (10-20); BUN (Urea Nitrogen) 22 mg/dL (8.4-25.7); Calc. Creatinine Clearance 0 mL/min (70-130); Calcium 9.3 mg/dL (7.8-10.44); Carbon Dioxide 28 mmol/L (23-31); Chloride 105 mmol/L (98-107); Glucose 108 mg/dL (83-110); Potassium 4.6 mmol/L (3.5-5.1); Sodium 140 mmol/L (136-145)
[2025-08-29 10:36] LABS: #Basophils 0.04 10x3/uL (0.0-0.2); #Eosinophils 0.31 10x3/uL (0.0-0.7); #Monocytes 0.50 10x3/uL (0.11-0.59); #Neutrophils 3.46 10x3/uL (1.40-6.50); %Basophils 0.7 % (0.0-1.0); %Eosinophils 5.8 % (0.0-10.0); %Lymphocytes 19.3 % (21.0-51.0); %Monocytes 9.3 % (0.0-10.0); %Neutrophils 64.7 % (42.0-75.0); Hematocrit 41.7 % (42.0-52.0); Hemoglobin 14.1 g/dL (14.0-18.0); Mean Corpuscular Hemoglobin 31.5 pg (27.0-31.0); Mean Corpuscular Volume 93.3 fL (78.0-98.0); Platelet Count 120 10x3/uL (130-400); Red Blood Cell (RBC) Count 4.47 mill/uL (4.70-6.10); White Blood Cell (WBC) Count 5.35 10x3/uL (4.8-10.8)
[2025-08-29 11:18] LABS: Anisocytosis SLIGHT = 6-15 cells HPF (0-5); Burr Cells SLIGHT = 2-5 cells HPF (0-1); Macrocytosis SLIGHT = 6-15 cells HPF (0-5); Platelet Adequacy Comment Platelets Decreased; Polychromasia SLIGHT = 2-3 cells HPF (0-2); Smudge Cells 3.9 %
== END 2025-08-29 08:20 | disposition home or self-care (01) ==
LOC: LABBT 08:19
PROVIDERS: ATTEND Internal Medicine Cardiovascular Disease
DX: Z01.812 Encounter for preprocedural laboratory examination (principal); R55 Syncope and collapse; I45.3 Trifascicular block
CPT/HCPCS: 80048; 85025; 85610; 85730